=== PATIENT | female | born 1975 | race African-American/Black ===

== ENCOUNTER → 2017-03-20 | Emergency (ER) | payer OTHER ==
[~2017-03-20] VITALS: Ht 165.1 cm; Wt 48.5 kg
[~2017-03-20] MED LIST: PEPCID40 MG PO; ZOFRAN4 MG PO
== END | disposition home or self-care (01) ==
LOC: ER 15:06
DX: B02.8 Zoster with other complications (principal)

== ENCOUNTER → 2019-03-04 | Emergency (ER) | payer OTHER ==
[~2019-03-04] VITALS: Ht 162.6 cm; Wt 51.3 kg
== END | disposition home or self-care (01) ==
LOC: ER 14:37
DX: G24.3 Spasmodic torticollis (principal)

== ENCOUNTER 2020-02-15 18:16 | Inpatient (IN) | payer OTHER ==
[~2020-02-15] VITALS: Ht 160 cm; Wt 49.9 kg
--- NOTE | 2020-02-15 18:42 | NUR ---
PACIENTE FEMINA ALERTA ORIENTADA EN COMPANIA DE FAMILIAR. LA MISMA REFIERE DOLOR EN FLANKO LT DESDE HACE DOS JOHNSON APROXIMADAMENTE.
--- NOTE | 2020-02-15 19:26 | NUR ---
PACIENTE FEMINA ALERTA ORENTADA EN COMPANIA DE FAMILIAR. SE RE ORIENTA SOBRE EL TRATAMIENTO ORDENADO POR EL MEDICO LA MISMA REFIERE ENTENDER. BAJO MEDIDAS ASEPTICAS SE CANALIZA SE ARIS MUESTRAS DE LABORATORIO Y SE ADINISTRAN MEDICAMENTS JAMES ORDENADOS. ORDENES TOMADAS Y EJECUTADAS POR RN: CHARLES.
--- NOTE | 2020-02-15 23:13 | NUR ---
SE RECIBE FEMINA ALERTA Y ORIENTADA POR JAN ESFERAS, EN CAMLLA CON BARANDAS SEGURAS Y ELEVADAS. AREA DE VENOPUNCION ROSAS DE EDEMA O ENROJECIMIENTO. RECIBIENDO 0.9% NSS @ 125 ML/HR. PENDIENTE CONSULTA CON INTERNISTA.
--- NOTE | 2020-02-16 07:14 | NUR ---
PACIENTE ALERTA Y ORIENTADA POR JAN.SE OFRECE DUYEN PARA EVALUAR CONDICION. IVF'S PATENTES, ANGIO # 20 BRAZO IZQ,AREA ROSAS DE EDEMA Y/O ERITEMA, BAJANDO .9NSS A 125MLS/HR.EN ESPERA DE CONSULTA CON DR BRAND,BARANDAS ELEVADAS POR HER SEGURIDAD.SE CONTINUA MONITOREANDO POR CAMBIOS.
== END 2020-02-18 17:34 | disposition home or self-care (01) | DRG 690 ==
LOC: ER 18:16 → MEDJ 02-16 11:08
PROVIDERS: ADMIT Internal Medicine; ATTEND Internal Medicine
PROC: BW21ZZZ Computerized Tomography (CT Scan) of Abdomen and Pelvis (ICD-10-PCS; principal; 2020-02-16)
DX: N39.0 Urinary tract infection, site not specified (principal); E86.0 Dehydration; K29.70 Gastritis, unspecified, without bleeding